=== PATIENT | male | born 1990 | race Caucasian/White ===

== ENCOUNTER 2024-10-28 19:45 | Emergency (ER) | payer MEDICAID, OTHER ==
[~2024-10-28] VITALS: Ht 180.3 cm; Wt 80.0 kg
[2024-10-28 19:58] VITALS: O2SAT 97
[2024-10-28 20:15] VITALS: O2SAT 99
[2024-10-28 21:18] VITALS: BP 147/80; PULSE 77; RESP 16
[2024-10-28] MEDS: KETOROLAC 15MG/ML VIAL IM ONE (21:18)
[2024-10-28] MEDS ORDERED: BENZ100C86 MT (21:27)
== END 2024-10-28 22:13 | disposition home or self-care (01) ==
LOC: ER 19:45
DX: J06.9 Acute upper respiratory infection, unspecified (principal); B97.89 Other viral agents as the cause of diseases classified elsewhere; R09.81 Nasal congestion; R50.9 Fever, unspecified
CPT/HCPCS: 99283; 71045; 96372; J1885